=== PATIENT | male | born 1955 | race Caucasian/White ===

== ENCOUNTER 2021-05-02 09:51 | Observation (INO) | payer BC, OTHER ==
[2021-05-02 13:06] VITALS: BMI 38.9
[2021-05-02] MEDS ORDERED: Nitroglycerin 0.4 MG TAB (25 Tab Bottle) SL PRN (13:44)
[2021-05-02] MEDS ORDERED: HumaLOG 300 UNITS/3 ML VIAL SC PRN ×2 (13:46)
[2021-05-02] MEDS ORDERED: Dextrose 50% Abboject 50 ML SYRINGE SLOW IVP PRN (13:46)
[2021-05-02] MEDS ORDERED: Dextrose 5% in Water 1,000 ML IV PRN (13:46)
[2021-05-02] MEDS ORDERED: Senokot S 8.6-50 MG TAB PO PRN (14:12)
[2021-05-02] MEDS ORDERED: Ondansetron PF 4 MG/2 ML Vial IVP PRN (14:12)
[2021-05-02] MEDS ORDERED: Acetaminophen 325 MG TAB PO PRN (14:12)
[2021-05-02] MEDS ORDERED: Ondansetron ODT 4 MG TAB PO PRN (14:12)
[2021-05-02 14:18] LABS: Troponin I 0.029 ng/mL (< 0.028)
[2021-05-02] MEDS ORDERED: Morphine 4 MG/ML VIAL SLOW IVP PRN (14:32)
[2021-05-02 17:56] LABS: Magnesium 1.8 mg/dL (1.6-2.6)
[2021-05-02] MEDS: traMADol HCl 50 MG TAB PO PRN (19:40)
[2021-05-02 20:23] LABS: Bacteria/HPF None Seen HPF (None Seen); Bilirubin Negative (Negative); Blood, Urine Negative (Negative); Clarity Clear (Clear); Glucose, Urine (Dipstick) Normal (Negative); Ketone, Urine Negative (Negative); Leukocyte Negative Leu/uL (Negative); Nitrite Negative (Negative); Protein, Urine (Dipstick) Negative (Neg-Trace); RBC/HPF 0-3 HPF (0-3); Specific Gravity, Urine 1.024 (1.002-1.036); Squamous Epithelial None Seen HPF (0-3); Urobilinogen Normal mg/dL (Less than 2); WBC/HPF 0-3 HPF (0-3)
[2021-05-02 20:31] LABS: Amphetamine Not Detected (NotDetected); Barbiturates Screen Not Detected (NotDetected); Benzodiazepine Screen Not Detected (NotDetected); Cocaine Metabolite Screen Not Detected (NotDetected); Methadone Not Detected (NotDetected); Methamphetamine Not Detected (NotDetected); Opiate Screen Detected (NotDetected); Oxycodone Screen Not Detected (NotDetected); Phencyclidine (PCP) Not Detected (NotDetected); THC/Cannabinoid Screen Not Detected (NotDetected); Tricyclic Screen Not Detected (NotDetected)
[2021-05-02] MEDS ORDERED: Gabapentin 300 MG CAP PO SCH (21:00)
[2021-05-02] MEDS ORDERED: Atorvastatin Calcium 10 MG TAB PO SCH (21:00)
[2021-05-02] MEDS ORDERED: Electrolyte Replacement Protocol 1 EACH FS SCH (22:45)
[2021-05-02] MEDS ORDERED: Magnesium 2 GM/50 ML 2 GM in Premix Bag 1 BAG IVPB SCH (23:45)
[2021-05-03] MEDS: traMADol HCl 50 MG TAB PO PRN (01:45)
[2021-05-03 05:45] LABS: Cardiac Risk 5.2 (Less than 4.5); Cholesterol 161 mg/dl (< 200 Desired); HDL Cholesterol 31 mg/dL (>60 Neg Risk); LDL Cholesterol, Calculated 96 mg/dL; Magnesium 2.2 mg/dL (1.6-2.6); Triglycerides 172 mg/dL (Less than 150)
[2021-05-03 08:11] VITALS: BP 119/60; TEMP 98.3
[2021-05-03] MEDS ORDERED: Aspirin Chewable 81 MG TAB PO SCH (09:00)
== END 2021-05-03 11:20 | disposition left against medical advice (07) ==
LOC: 2SW 11:57
PROVIDERS: ADMIT Internal Medicine; ATTEND Internal Medicine
DX: R07.89 Other chest pain (principal); R55 Syncope and collapse; E11.42 Type 2 diabetes mellitus with diabetic polyneuropathy; E11.22 Type 2 diabetes mellitus with diabetic chronic kidney disease; N18.2 Chronic kidney disease, stage 2 (mild); K21.9 Gastro-esophageal reflux disease without esophagitis; E78.5 Hyperlipidemia, unspecified; E66.9 Obesity, unspecified; Z68.39 Body mass index [BMI] 39.0-39.9, adult; Z53.29 Procedure and treatment not carried out because of patient's decision for other reasons; Z88.0 Allergy status to penicillin; Z79.84 Long term (current) use of oral hypoglycemic drugs; Z79.899 Other long term (current) drug therapy
CPT/HCPCS: 36415; 36416; 80061; 80306; 81001; 83690; 83735; 84443; 93306; 94760; 96366; 96375; G0378; J2270; J3475